=== PATIENT | male | born 1970 | race Caucasian/White ===

== ENCOUNTER 2023-05-24 18:04 | Observation (INO) | payer BC, OTHER ==
[~2023-05-24 18:04] MED LIST: Flecainide 50 MG TAB PO SCH
[2023-05-24] MEDS ORDERED: Acetaminophen 500 MG TAB ONE (19:09)
[2023-05-24] MEDS ORDERED: Aspirin 325 MG TAB ONE (19:21)
[2023-05-24 19:43] LABS: #Basophils 0.1 10x3/uL (0.0-0.2); #Monocytes 1.3 10x3/uL (0.0-1.1); #Neutrophils 5.8 10x3/uL (1.5-8.4); %Basophils 0.6 % (0.0-2.0); %Eosinophils 0.2 % (0.0-6.0); %Lymphocytes 30.1 % (18.0-47.0); %Monocytes 12.7 % (0.0-10.0); %Neutrophils 56.1 % (40.0-75.0); Hematocrit 48.2 % (38.8-50.0); Hemoglobin 16.4 g/dL (13.5-17.5); Mean Corpuscular Hemoglobin 30.8 pg (27.0-33.0); Mean Corpuscular Volume 90.4 fl (81.2-95.1); Mean Platelet Volume 10.6 fl (7.4-10.4); Platelet Count 386 10x3/uL (150-450); RBC Distribution Width 14.8 % (11.5-14.5); Red Blood Cell (RBC) Count 5.33 10x6/uL (4.32-5.72); White Blood Cell (WBC) Count 10.4 10x3/uL (3.5-10.5)
[2023-05-24 19:46] LABS: ALT (SGPT) 19 U/L (8-55); AST (SGOT) 16 U/L (5-34); Albumin 4.5 g/dL (3.5-5.0); Alkaline Phosphatase 41 U/L (40-110); Anion Gap 17 mmol/L (10-20); BUN (Urea Nitrogen) 39 mg/dL (8.4-25.7); Bilirubin, Total 0.7 mg/dL (0.2-1.2); Calc. Creatinine Clearance 0 mL/min (70-130); Calcium 9.8 mg/dL (7.8-10.44); Carbon Dioxide 24 mmol/L (22-29); Chloride 103 mmol/L (98-107); Estimated GFR 38; Globulin 2.7 g/dL (2.4-3.5); Glucose 85 mg/dL (70-105); Potassium 3.4 mmol/L (3.5-5.1); Protein, Total 7.2 g/dL (6.0-8.3); Sodium 141 mmol/L (136-145)
[2023-05-24 19:52] LABS: Troponin I 0.014 ng/mL (< 0.028)
[2023-05-24] MEDS ORDERED: fentaNYL 50 mcg/mL 1 mL Vial ONE (20:28)
[2023-05-24] MEDS ORDERED: Metoprolol Tartrate 5 MG/5 ML VIAL ONE (20:29)
[2023-05-24] MEDS ORDERED: HumaLOG 300 UNITS/3 ML VIAL SC PRN (22:51)
[2023-05-24] MEDS ORDERED: Dextrose 5% in Water 1,000 ML IV PRN (22:51)
[2023-05-24] MEDS ORDERED: Dextrose 50% Abboject 50 ML SYRINGE SLOW IVP PRN (22:51)
[2023-05-24] MEDS ORDERED: Guaifenesin DM 100-10/5 ML UDCUP PO PRN (22:51)
[2023-05-24] MEDS ORDERED: Glucagon 1 MG/ML KIT IM PRN (22:51)
[2023-05-24] MEDS ORDERED: Zolpidem Tartrate 5 MG TAB PO PRN (22:51)
[2023-05-24] MEDS ORDERED: Calcium Carbonate 500 MG ChewTAB PO PRN (22:51)
[2023-05-24] MEDS ORDERED: Senokot S 8.6-50 MG TAB PO PRN (22:51)
[2023-05-24] MEDS ORDERED: Ondansetron PF 4 MG/2 ML Vial IVP PRN (22:51)
[2023-05-24] MEDS ORDERED: Metoprolol Tartrate 25 MG TAB PO SCH (23:00)
[2023-05-24] MEDS ORDERED: Potassium Chloride 20 MEQ TAB PO SCH (23:00)
[2023-05-24] MEDS ORDERED: Lactated Ringer's 500 ML IV SCH (23:00)
[2023-05-24] MEDS ORDERED: Enoxaparin 120 MG/0.8 ML SYRINGE SC SCH (23:00)
[2023-05-25 00:09] VITALS: BMI 34.5
[2023-05-25] MEDS ORDERED: Enoxaparin 120 MG/0.8 ML SYRINGE SC ONE (00:14)
[2023-05-25] MEDS ORDERED: Metoprolol Tartrate 25 MG TAB ONE (00:15)
[2023-05-25] MEDS ORDERED: Potassium Chloride 20 MEQ TAB ONE (00:15)
[2023-05-25 00:52] LABS: Bilirubin Neg (Negative); Blood, Urine 10 (Negative); Clarity Clear (Clear); Glucose, Urine (Dipstick) Normal (Negative); Ketone, Urine 50 mg/dL (Negative); Leukocyte Negative (Negative); Nitrite Negative (Negative); Protein, Urine (Dipstick) 30 mg/dl (Neg-Trace); Specific Gravity, Urine 1.015 (1.005-1.030); Urobilinogen Normal mg/dL (Less than 2)
[2023-05-25 00:57] LABS: Bacteria/HPF None Seen HPF (None Seen); RBC/HPF 0-3 HPF (0-3); Squamous Epithelial 0-3 HPF (0-3); WBC/HPF 0-3 HPF (0-3)
[2023-05-25] MEDS: Acetaminophen 325 MG TAB PO PRN ×2 (02:31→10:42)
[2023-05-25 06:06] LABS: Anion Gap 12 mmol/L (10-20); BUN (Urea Nitrogen) 36 mg/dL (8.4-25.7); Calc. Creatinine Clearance 88 mL/min (70-130); Calcium 9.2 mg/dL (7.8-10.44); Carbon Dioxide 30 mmol/L (22-29); Chloride 102 mmol/L (98-107); Estimated GFR 52; Glucose 104 mg/dL (70-105); Magnesium 2.1 mg/dL (1.6-2.6); Potassium 3.1 mmol/L (3.5-5.1); Sodium 141 mmol/L (136-145)
[2023-05-25] MEDS ORDERED: Potassium Chloride 20 MEQ TAB PO SCH ×2 (06:30→09:00)
[2023-05-25 08:39] LABS: Troponin I Less than 0.010 ng/mL (< 0.028)
[2023-05-25] MEDS: Carvedilol 25 MG TAB PO SCH ×2 (08:44→20:58)
[2023-05-25] MEDS: Amlodipine 5 MG TAB PO SCH (08:44)
[2023-05-25] MEDS: Flecainide 50 MG TAB PO SCH ×2 (08:44→20:59)
[2023-05-25] MEDS: metFORMIN 500 MG TAB PO SCH ×2 (08:45→21:03)
[2023-05-25 13:08] LABS: Hemoglobin A1c 6.2 % (4.0-6.0)
[2023-05-25] MEDS: HYDROcodone/Acetaminophen 5/325 mg Tablet PO PRN (19:36)
[2023-05-25] MEDS ORDERED: Rosuvastatin 10 MG TAB PO SCH (21:00)
[2023-05-26] MEDS: HYDROcodone/Acetaminophen 5/325 mg Tablet PO PRN (01:43)
[2023-05-26 05:20] LABS: Anion Gap 14 mmol/L (10-20); BUN (Urea Nitrogen) 33 mg/dL (8.4-25.7); Calc. Creatinine Clearance 102 mL/min (70-130); Calcium 9.1 mg/dL (7.8-10.44); Carbon Dioxide 27 mmol/L (22-29); Chloride 105 mmol/L (98-107); Estimated GFR 62; Glucose 112 mg/dL (70-105); Potassium 3.5 mmol/L (3.5-5.1); Sodium 142 mmol/L (136-145)
[2023-05-26 05:21] LABS: Troponin I Less than 0.010 ng/mL (< 0.028)
[2023-05-26 08:50] VITALS: TEMP 97.8
[2023-05-26] MEDS: Amlodipine 5 MG TAB PO SCH (08:50)
[2023-05-26] MEDS: Flecainide 50 MG TAB PO SCH (08:51)
[2023-05-26] MEDS: Carvedilol 25 MG TAB PO SCH (08:51)
[2023-05-26] MEDS ORDERED: Aspirin 81 mg Enteric Coated Tablet PO SCH (09:00)
[2023-05-26] MEDS ORDERED: Furosemide 40 MG/4 ML VIAL SLOW IVP SCH (10:30)
[2023-05-26] MEDS: Acetaminophen 325 MG TAB PO PRN (12:45)
[2023-05-26 14:31] VITALS: BP 130/85
== END 2023-05-26 13:20 | disposition home or self-care (01) ==
LOC: CSHERS 18:04 → CSHERHOLD 22:51 → CSHTELE 05-25 01:48
PROVIDERS: ADMIT Student in an Organized Health Care Education/Training Program; ATTEND Internal Medicine
DX: I48.91 Unspecified atrial fibrillation (principal); I48.0 Paroxysmal atrial fibrillation; N17.9 Acute kidney failure, unspecified; I12.9 Hypertensive chronic kidney disease with stage 1 through stage 4 chronic kidney disease, or unspecified chronic kidney disease; N18.30 Chronic kidney disease, stage 3 unspecified; G47.33 Obstructive sleep apnea (adult) (pediatric); E78.5 Hyperlipidemia, unspecified; E11.9 Type 2 diabetes mellitus without complications; E87.6 Hypokalemia; E66.01 Morbid (severe) obesity due to excess calories; Z68.34 Body mass index [BMI] 34.0-34.9, adult; Z90.49 Acquired absence of other specified parts of digestive tract; Z88.0 Allergy status to penicillin; Z79.84 Long term (current) use of oral hypoglycemic drugs; Z79.899 Other long term (current) drug therapy
CPT/HCPCS: 36415; 36416; 70450; 70551; 71045; 80048; 80053; 81001; 83036; 83735; 84443; 84484; 85025; 85379; 93005; 93306; 96361; 96372; 96374; 96375; G0378; J1650; J1815; J1940; J3010; J7120

== ENCOUNTER 2024-05-14 16:00 | Outpatient (CLI) | payer OTHER | END 2024-05-14 16:01 | disposition home or self-care (01) | LOC: CSHSLEEP 16:00 | PROVIDERS: ATTEND Internal Medicine | DX: G47.33 Obstructive sleep apnea (adult) (pediatric) (principal); R06.83 Snoring | CPT/HCPCS: 95810 ==